=== PATIENT | female | born 1960 | race Hispanic/Latino ===

== ENCOUNTER → 2024-01-16 | Day surgery (SDC) | payer MEDICARE ==
[~2024-01-16] MED LIST: ATORVASTATIN CA20 MG PO; BUPROPION HCL150 M2 PO; DEXMEDETOMIDINE HCL 200 MCG/2 ML VIAL ONE; FEROSUL325 MG PO; HYDROXYZIN10 MG/5 ML PO; LEVOTHYROXINE175 MCG PO; LIDOCAINE HCL 2% LOCAL INJ 5 ML SDV VIAL INJ ONE; MIDAZOLAM HCL 2 MG/2 ML VIAL ONE; NAPROXEN250 MG PO; OMEPRAZOLE40 MG PO; PROPOFOL IV EMULSION 10 MG/ML 50 ML VIAL IV ONE; VITAMIN D PO; ZESTRIL2.5 MG PO
[2024-01-16 18:00] VITALS: BP 119/78; PULSE 78; RESP 15; TEMP 97.6; O2SAT 96
== END | disposition home or self-care (01) ==
LOC: OR 14:48
PROVIDERS: ATTEND Internal Medicine Gastroenterology
DX: Z12.11 Encounter for screening for malignant neoplasm of colon (principal); K58.9 Irritable bowel syndrome, unspecified; K64.8 Other hemorrhoids; I10 Essential (primary) hypertension; K76.9 Liver disease, unspecified; E11.9 Type 2 diabetes mellitus without complications; E89.0 Postprocedural hypothyroidism; D64.9 Anemia, unspecified; Z71.3 Dietary counseling and surveillance; Z68.41 Body mass index [BMI] 40.0-44.9, adult; F17.210 Nicotine dependence, cigarettes, uncomplicated; Z98.84 Bariatric surgery status; R00.1 Bradycardia, unspecified; Z01.810 Encounter for preprocedural cardiovascular examination; Z79.899 Other long term (current) drug therapy; Z79.1 Long term (current) use of non-steroidal anti-inflammatories (NSAID)
CPT/HCPCS: 93005; G0121; J2001; J2250; J2704; 45378